=== PATIENT | female | born 1945 | race Caucasian/White ===

== ENCOUNTER 2018-07-04 06:26 | Outpatient (CLI) | payer MEDICARE, BC ==
[2018-07-04 12:53] LABS: Hemoglobin 13.2 g/dL (12.0-16.0); Mean Corpuscular HGB CONC 32.3 g/dL (32.0-36.0); Mean Corpuscular Hemoglobin 29.7 pg (27.0-31.0); Platelet Count 249 thou/uL (130-400); Red Blood Cell (RBC) Count 4.44 mill/uL (4.20-5.40); White Blood Cell (WBC) Count 5.4 thou/uL (4.8-10.8)
[2018-07-04 13:06] LABS: PTT 30.6 SEC (22.9-36.1); Prothrombin Time 13.1 SEC (12.0-14.7)
[2018-07-04 13:19] LABS: Anion Gap 12 mmol/L (10-20); BUN (Urea Nitrogen) 23 mg/dL (9.8-20.1); Calc. Creatinine Clearance 0 mL/min (70-130); Calcium 10.1 mg/dL (7.8-10.44); Carbon Dioxide 27 mmol/L (23-31); Chloride 106 mmol/L (98-107); Estimated GFR-MDRD 58; Glucose 72 mg/dL (83-110); Potassium 4.5 mmol/L (3.5-5.1); Sodium 140 mmol/L (136-145)
== END 2018-07-04 06:27 | disposition home or self-care (01) ==
LOC: LABBT 06:26
PROVIDERS: ATTEND Surgery
DX: Z01.818 Encounter for other preprocedural examination (principal); M48.061 Spinal stenosis, lumbar region without neurogenic claudication; M54.16 Radiculopathy, lumbar region
CPT/HCPCS: 80048; 85027; 85610; 85730; 93005; 93010

== ENCOUNTER 2018-07-11 06:59 | Observation (INO) | payer MEDICARE, BC ==
[2018-07-11] MEDS ORDERED: Fentanyl 100 MCG/2 ML VIAL ONE ×6 (09:41→16:58)
[2018-07-11] MEDS ORDERED: Bacitracin Zinc Ointment 30 gm TUBE ONE ×2 (11:29→13:57)
[2018-07-11] MEDS ORDERED: Sodium Chloride 0.9% 0 ML ONE (11:29)
[2018-07-11] MEDS ORDERED: Thrombin 5000 UNITS/5 ML VIAL ONE ×2 (11:29→13:57)
[2018-07-11] MEDS ORDERED: Fentanyl 250 MCG/5 ML VIAL ONE (11:38)
[2018-07-11] MEDS ORDERED: Sodium Chloride 0.9% 10 ML ONE (13:57)
[2018-07-11] MEDS ORDERED: Lidocaine 1% PF 5 ML VIAL ONE (14:58)
[2018-07-11] MEDS ORDERED: Rocuronium Bromide 10 MG/ML (10ML VIAL) ONE (14:58)
[2018-07-11] MEDS ORDERED: PROPOFOL 200 MG/20 ML VIAL ONE (14:58)
[2018-07-11] MEDS ORDERED: Dexamethasone 20 MG/5 ML VIAL ONE (14:58)
[2018-07-11] MEDS ORDERED: Glycopyrrolate 0.2 MG/ML 5 ML SYRINGE ONE (14:58)
[2018-07-11] MEDS ORDERED: ePHEDrine 50 MG/ML VIAL ONE (14:58)
[2018-07-11] MEDS ORDERED: Ondansetron PF 4 MG/2 ML Vial ONE (14:58)
[2018-07-11] MEDS ORDERED: PHENYLEPHRINE-NS 100 MCG/ML 10 ML SYRINGE ONE (14:58)
[2018-07-11] MEDS ORDERED: Bisacodyl 10 MG SUPP PR PRN (15:11)
[2018-07-11] MEDS ORDERED: Promethazine HCl 25 MG/ML VIAL IM PRN (15:11)
[2018-07-11] MEDS ORDERED: traMADol HCl 50 MG TAB PO PRN (15:11)
[2018-07-11] MEDS ORDERED: Milk Of Magnesia 30 ML UDCUP PO PRN (15:11)
[2018-07-11] MEDS ORDERED: Mag-Al 1200 mg/1200 mg/30 ML UDCUP PO PRN (15:11)
[2018-07-11] MEDS ORDERED: Fleet Enema 133 ML BOT PR PRN (15:11)
[2018-07-11] MEDS ORDERED: Acetaminophen 325 MG TAB PO PRN (15:11)
[2018-07-11] MEDS ORDERED: CEFAZOLIN/Water 2 GM/20 ML SYRINGE SLOW IVP SCH (15:15)
[2018-07-11] MEDS: CEFAZOLIN 2 GM in Premix Bag 1 BAG IVPB SCH (17:18)
[2018-07-11] MEDS: Sodium Chloride 0.9% 1,000 ML IV SCH ×2 (17:18→22:28)
[2018-07-11] MEDS: traMADol HCl 50 MG TAB PO PRN (17:57)
[2018-07-11] MEDS ORDERED: traMADol HCl 50 MG TAB ONE (17:57)
[2018-07-11] MEDS ORDERED: tiZANidine HCl 4 MG TAB ONE (18:53)
[2018-07-11] MEDS: tiZANidine HCl 4 MG TAB PO PRN (18:55)
[2018-07-11] MEDS: Pregabalin 75 MG CAP PO SCH (22:00)
[2018-07-11] MEDS: Atenolol 50 MG TAB PO SCH (22:02)
[2018-07-11] MEDS: Gemfibrozil 600 MG TAB PO SCH (22:02)
[2018-07-11] MEDS: Calcium Carbonate 500 MG TAB PO SCH (22:02)
[2018-07-11] MEDS: Liothyronine Sodium 5 MCG TAB PO SCH (22:03)
[2018-07-11] MEDS: HYDROcodone/Acetaminophen 7.5/325 mg Tablet PO PRN (22:11)
[2018-07-11] MEDS: diphenhydrAMINE 25 MG CAP PO PRN (22:11)
[2018-07-11 22:14] VITALS: BMI 39.4
[2018-07-12] MEDS: CEFAZOLIN 2 GM in Premix Bag 1 BAG IVPB SCH (01:30)
[2018-07-12] MEDS ORDERED: CEFAZOLIN 2 GM in Premix Bag 1 BAG IVPB SCH (02:00)
[2018-07-12] MEDS: traMADol HCl 50 MG TAB PO PRN (02:28)
[2018-07-12] MEDS: tiZANidine HCl 4 MG TAB PO PRN ×2 (02:28→19:45)
[2018-07-12] MEDS: Sodium Chloride 0.9% 1,000 ML IV SCH (04:38)
[2018-07-12] MEDS: HYDROcodone/Acetaminophen 7.5/325 mg Tablet PO PRN ×3 (05:49→19:44)
[2018-07-12] MEDS: diphenhydrAMINE 25 MG CAP PO PRN ×2 (05:49→19:45)
[2018-07-12] MEDS: Calcium Carbonate 500 MG TAB PO SCH ×2 (08:13→22:33)
[2018-07-12] MEDS: Gemfibrozil 600 MG TAB PO SCH ×2 (08:13→16:42)
[2018-07-12] MEDS: Atenolol 50 MG TAB PO SCH ×2 (08:13→22:31)
--- NOTE | 2018-07-12 08:41 | OP ---
DATE OF PROCEDURE: 07/11/2018 OPERATING ROOM: OR 12. WOUND CLASSIFICATION: Type 1 wound. PATROL CONDUCTOR: Sandeep Beth PA-C PREPROCEDURE DIAGNOSES: Multilevel lumbar stenosis with low back and leg pain and lumbar radiculopathy, neurogenic claudication. POSTPROCEDURE DIAGNOSES: Multilevel lumbar stenosis with low back and leg pain and lumbar radiculopathy, neurogenic claudication. PROCEDURES PERFORMED: L1-L2, L2-L3, L3-L4, L4-L5, and L5-S1 laminectomies, partial facetectomies, and foraminotomies. DESCRIPTION OF PROCEDURE: After informed consent was obtained from the patient, the patient was brought to the OR. Proper patient, pause, and identification were carried out. She was placed in excellent general endotracheal anesthesia and positioned prone on the OR table. All appropriate points were padded. We identified the L1 through S1 dorsal spines. A linear pepe was made over this region. This area was sterilely cleansed, prepared, and draped. Proper patient, pause, and identification were carried out. We then performed L1, L2, L3, L4, L5, and S1 dorsal spine laminae exposure. Following localization, we performed an L1 through S1 laminectomy, partial facetectomy, foraminotomy with excellent decompression of the common dural tube in the L1 through S1 nerve roots bilaterally. There was no spinal fluid leak. Hemostasis was maximized throughout. The wound was then copiously irrigated and closed in anatomic layers following sprinkling of vancomycin powder. The patient then emerged from anesthesia. Job ID: [id number]
[2018-07-12] MEDS ORDERED: Morphine 2 MG/ML SYRINGE SLOW IVP PRN (08:48)
[2018-07-12] MEDS: Pregabalin 75 MG CAP PO SCH ×2 (09:02→22:32)
--- NOTE | 2018-07-12 09:51 | PRG ---
DATE OF SERVICE: 07/12/2018 DICTATING FOR: Herbert Braun MD SUBJECTIVE: Ms. Blessing Bassett is postoperative day #1, having undergone multilevel lumbar laminectomies. The patient is very thrilled with her outcome postoperatively. She states she did not sleep well due to the mattress, but change positions every hour and half and this seemed to help. Tonight, she would like to sleep in a chair and I am fine with that. She remains with good strength in the bilateral lower extremities with intact sensation to light touch throughout. She has asked to go to [facility] and I have put in a consult for this. She is ready for discharge at any time, but we will follow up with her in the morning. Otherwise again, the patient is very thrilled with her outcome postoperatively as she has some back pain with movement and a slight amount of left buttock pain, but otherwise has no leg pain. Job ID: [id number]
[2018-07-12] MEDS ORDERED: Gabapentin 100 MG CAP PO SCH (21:00)
[2018-07-12] MEDS: Liothyronine Sodium 5 MCG TAB PO SCH (22:31)
[2018-07-13] MEDS: HYDROcodone/Acetaminophen 7.5/325 mg Tablet PO PRN ×2 (02:35→09:20)
[2018-07-13] MEDS ORDERED: Gabapentin 100 MG CAP PO SCH (06:00)
[2018-07-13] MEDS: Gemfibrozil 600 MG TAB PO SCH (06:34)
[2018-07-13] MEDS: Sodium Chloride 0.9% 1,000 ML IV SCH ×2 (06:40→09:04)
[2018-07-13 08:31] VITALS: BP 123/59; TEMP 97.8
[2018-07-13] MEDS: Calcium Carbonate 500 MG TAB PO SCH (09:21)
[2018-07-13] MEDS: Atenolol 50 MG TAB PO SCH (09:22)
--- NOTE | 2018-07-13 10:22 | PRG ---
DATE OF SERVICE: 07/13/2018 SUBJECTIVE: Ms. Blessing Bassett is postoperative day #2 from L1-S1 decompression. She has noticed improvement in her leg pain. She is ambulating. The expected plan is inpatient rehab today. Job ID: [id number]
[2018-07-13] MEDS: Pregabalin 75 MG CAP PO SCH (10:51)
== END 2018-07-13 13:29 ==
LOC: SDC 06:59 → ONC 15:41 → SDC 07-12 16:56 → ONC 07-12 16:57
PROVIDERS: ADMIT Surgery; ATTEND Surgery
PROC: 01NB0ZZ Release Lumbar Nerve, Open Approach (ICD-10-PCS; principal; 2018-07-11)
DX: M48.062 Spinal stenosis, lumbar region with neurogenic claudication (principal); M54.16 Radiculopathy, lumbar region; Z88.5 Allergy status to narcotic agent; Z88.2 Allergy status to sulfonamides; Z79.899 Other long term (current) drug therapy; Z79.891 Long term (current) use of opiate analgesic
CPT/HCPCS: 63047; 63048 ×4; 76000; 97110 ×2; 97116 ×2; 97139 ×4; 97530 ×2; G0378; J1100; J2001; J2270; J2405; J2704; J3010; J3370; J3490; Q0163